=== PATIENT | female | born 1935 | race Caucasian/White ===

== ENCOUNTER → 2016-10-01 | Day surgery (SDC) | payer OTHER, BC ==
--- NOTE | 2016-10-02 15:49 | PATH ---
Surgical Pathology Report Patient Name: GRACIELA PATINO [facility]. Rec. #: [id number] /Age/Gender: 1935 (Age: 81) / F Account: [id number] Location: [facility] Taken: 10/01/2016 Received: 10/01/2016 Reported: 10/02/2016 Physicians: Michelle Victoria M.D. Specimen(s) Received LEFT BREAST 11:00 5-6 CM FN CORE BIOPSY Clinical History Ultrasound findings: Suspicious Rule out fat necrosis versus recurrent carcinoma Final Diagnosis BREAST, LEFT, 11:00, 5-6 CM FN, CORE BIOPSY: BENIGN FIBROADIPOSE TISSUE SHOWING DENSE HYALINIZING FIBROSIS. NEGATIVE FOR MALIGNANCY. Electronically Signed Alexa Puckett M.D. Gross Description Received in formalin, labeled "left breast biopsy 11:00, 5-6 cmfn," are 6 andersen-yellow, cylindrical portions of fibroadipose tissue ranging from 1.0-1.5 cm. in length and averaging 0.1 cm. in diameter. The specimen is submitted in toto in one cassette. Time to formalin fixation: 2 minutes Total formalin fixation time: Approximately 6 hours. 10/01/201610/01/2016
== END | disposition home or self-care (01) ==
LOC: FRADUS-SUR 11:02
PROVIDERS: ATTEND Surgery Surgical Oncology
PROC: 0HBU3ZX Excision of Left Breast, Percutaneous Approach, Diagnostic (ICD-10-PCS; principal; 2016-10-01)
DX: N63 Unspecified lump in breast (principal); Z85.3 Personal history of malignant neoplasm of breast; Z92.3 Personal history of irradiation; N60.32 Fibrosclerosis of left breast
CPT/HCPCS: 19083; 88305-TC; G0206-TC